=== PATIENT | male | born 1955 | race Caucasian/White ===

== ENCOUNTER 2016-03-02 09:05 | Day surgery (SDC) | payer BC ==
[~2016-03-02 09:05] MED LIST: BUPIVACAINE HCL 0.75% INJ/PF (7.5 MG/1 ML) 10 ML SDV OS PRN; KETOROLAC TROMETHAMINE 0.45% 4 DROP/0.4 ML DROPERETTE OS PRN; LIDOCAINE 4% INJ/PF (40 MG/ML) 5 ML AMPUL OS PRN
[2016-03-02] MEDS ORDERED: PHENYLEPHRINE/KETOROLAC 1%-0.3% 4 ML VIAL ONE (09:11)
[2016-03-02] MEDS: TETRACAINE HCL 0.5% OPH SOLN 0.6 ML DROPERETTE OS PRN ×2 (09:20→09:50)
[2016-03-02] MEDS: CYCLOPENTOLATE 0.2%/PHENYLEPHRINE 1% OPH SOLN 2 ML OS PRN ×3 (09:21→09:48)
[2016-03-02] MEDS: TROPICAMIDE 1% OPH SOLN 3 ML OS PRN ×3 (09:22→09:49)
[2016-03-02] MEDS: BESIFLOXACIN HCL 0.6% OPH SUSP 5 ML BOTTLE OS PRN ×4 (09:23→10:48)
[2016-03-02] MEDS ORDERED: MIDAZOLAM 2 MG/2 ML INJ ONE (09:54)
[2016-03-02] MEDS ORDERED: ONDANSETRON HCL INJ/PF 4 MG/2 ML SDV ONE (09:55)
[2016-03-02] MEDS ORDERED: FENTANYL CITRATE INJ/PF 100 MCG/2 ML AMPUL ONE (09:55)
[2016-03-02] MEDS ORDERED: LIDOCAINE 1% INJ-PF (10 MG/ML) 30 ML SDV ONE (10:18)
[2016-03-02] MEDS: CHONDR SU A NA/HYALUR INTRAOC KIT (SURGICARE) ONE ×2 (10:40)
--- NOTE | 2016-03-02 11:18 | [facility] DISCHARGE SUMMARY E ---
[facility] Discharge Summary NAME: HUY FLEMING AGE: 60Y ADMITTED: 03/02/2016 DISCHARGED: PREOPERATIVE DIAGNOSES: 1. Cataract, left eye. 2. Pupil miosis, left eye. POSTOPERATIVE DIAGNOSES: 1. Cataract, left eye. 2. Pupil miosis, left eye. HOSPITAL COURSE: The patient is a 65-year-old gentleman who underwent uneventful complex cataract extraction with intraocular lens implant, left eye, on 03/02/2016. He will be discharged to home. He was instructed to resume preoperative medications, take Tylenol as needed for discomfort, to keep his eye shielded, to use Besivance, Durezol, and Ilevro at 3 p.m. and 8 p.m., and to follow up in my office in 1 day. DICTATING PHYSICIAN: TENA MALIN M.D. [id number] PHY#: [id number] ID: [id number] JOB#: [id number] ACCT: [id number] cc:TENA MALIN M.D. >
--- NOTE | 2016-03-02 11:18 | [facility] OPERATIVE REPORT E ---
[facility] Operative Report NAME: HUY FLEMING AGE: 60Y DATE OF SURGERY: 03/02/2016 ROOM: PREOPERATIVE DIAGNOSES: 1. Cataract, left eye. 2. Pupil miosis, left eye. POSTOPERATIVE DIAGNOSES: 1. Cataract, left eye. 2. Pupil miosis, left eye. PROCEDURE PERFORMED: Complex cataract extraction with intraocular lens implant, left eye. SURGEON: Myrna Malin MD ANESTHESIA: Topical with MAC plus intraocular lidocaine. INDICATIONS FOR SURGERY: Difficulty with glare with driving. Best corrected visual acuity 20/70. INDICATIONS FOR COMPLEX: poor pupil dilation requiring use of iris expansion device PROCEDURE IN DETAIL: The patient was brought to the operating room and placed on the operating table. Topical anesthesia was administered. This consisted of instrument wipe pledgets soaked in a solution of 4% Xylocaine mixed with 0.75% Marcaine in a 1:2 ratio. A 2 x 1 cm pledget was placed in the superior fornix. A 1 x 1 cm pledget was placed in the inferior fornix. The eye was patched shut for 5 minutes. The patch and pledgets were removed. The eye was sterilely prepped and draped in the usual manner. A lid speculum was placed in the eye. A 4-0 black silk suture was placed around the superior and inferior rectus muscles to use as traction. A conjunctival peritomy was made at the 10 o'clock position. Hemostasis was attained with bipolar cautery. A posterior limbal groove was created using a crescent knife and dissected anteriorly towards the cornea. A sharp point blade was used to create a paracentesis site at the 2 o'clock position. A 2.4 mm keratome was used to enter the anterior chamber through the groove. Then 0.5 mL of 1% nonpreserved lidocaine was injected into the anterior chamber. Viscoelastic was injected into the anterior chamber. Pupil dilation was approximately 4.5 mm. A Malyugin Ring was placed stabilizing the iris. An anterior capsulotomy was performed using Utrata forceps in a capsulorrhexis fashion. Hydrodissection and hydrodelineation were performed. Phacoemulsification was performed in a [id number]-[id number] technique. A total of 46 seconds total phaco time was used. Following this, the I/A unit was used to remove residual cortex. Viscoelastic was injected into the capsular bag. Intraocular lens model [id number]; 20.5 diopters, serial number [id number] was placed in the capsular bag. The Malyugin ring haptics were removed and the ring was removed from the eye. The I/A unit was used to remove residual viscoelastic. The wound was seen to be watertight under high and low pressure and no sutures were placed. The 4-0 black silk sutures and lid speculum were removed. The eye was shielded after Besivance drops were placed. The patient tolerated the procedure well and was sent to the recovery room in good condition. DICTATING PHYSICIAN: MYRNA MALIN M.D. DICTATING PHYSICIAN: MYRNA MALIN M.D. [id number] PHY#: [id number] ID: [id number] JOB#: [id number] ACCT: [id number] cc:MYRNA MALIN M.D. > MTDD
== END 2016-03-02 11:25 | disposition home or self-care (01) ==
LOC: SC 09:05
PROVIDERS: ATTEND Ophthalmology
PROC: 08RK3JZ Replacement of Left Lens with Synthetic Substitute, Percutaneous Approach (ICD-10-PCS; principal; 2016-03-02 10:30)
DX: H25.812 Combined forms of age-related cataract, left eye (principal); H57.03 Miosis; Z96.1 Presence of intraocular lens; I49.9 Cardiac arrhythmia, unspecified
CPT/HCPCS: 66982; V2632; J2250; J3490 ×4; J3010; J2405; C9447; 142

== ENCOUNTER → 2017-06-29 | Outpatient (CLI) | payer BC ==
--- NOTE | 2017-06-29 19:02 | XCELERA REPORT ---
[address] [address] Transthoracic Echocardiogram Report Name: HUY FLEMING Age: 61 yrs Gender: Male : 1955 Patient Status: Outpatient Patient Location: Study Date: 06/29/2017 10:24 AM Height: 70 in Weight: 232 lb BSA: 2.2 m2 Procedure: A complete two-dimensional transthoracic echocardiogram was performed (2D, M-mode, spectral and color flow Doppler). The study was technically difficult with many images being suboptimal in quality. Reason For Study: MURMUR Ordering Physician: AMITA MARIANO PA-C Performed By: Fareed Rodriguez Interpretation Summary The left ventricular ejection fraction is normal. There is mild to moderate concentric left ventricular hypertrophy. The left ventricle is grossly normal size. Doppler measurements suggest pseudonormalized left ventricular relaxation, which is associated with grade II/IV or mild to moderate diastolic dysfunction Wall motion cannot be accurately commented on, but no definite regional wall motion abnormalities noted. The right ventricular systolic function is normal. Borderline left atrial enlargement. The right atrium is normal in size There is a trace amount of mitral regurgitation There is no mitral valve stenosis. There is moderate aortic stenosis There is a peak gradient of 40-45, mean 25 mm of Hg. No aortic regurgitation is present. There is a trace to mild amount of tricuspid regurgitation There is mild pulmonary hypertension by echo Right ventricular systolic pressure is estimated to be elevated at 30- 40mmHg. The aortic root is not well visualized. The inferior vena cava was not well visualized There is no pericardial effusion. MMode/2D Measurements & Calculations RVDd: 3.3 cm LVIDd: 4.9 cmFS: 25.1 % Ao root diam: 3.2 cm IVSd: 1.3 cm LVIDs: 3.6 cmEDV(Teich): 111.4 ml LVPWd: 1.3 cmESV(Teich): 56.2 ml Ao root area: 7.8 cm2 EF(Teich): 49.6 % LA dimension: 3.2 cm LVOT diam: 2.1 cm LVOT area: 3.6 cm2 Doppler Measurements & Calculations MV E max radha: MV P1/2t max radha: Ao V2 max: LV V1 max P.9 cm/sec 83.1 cm/sec 317.9 cm/sec 2.3 mmHg MV A max radha: MV P1/2t: 69.7 msec Ao max PG: LV V1 mean P.5 cm/sec MVA(P1/2t): 3.2 cm2 40.4 mmHg 1.1 mmHg MV E/A: 0.84 MV dec slope: Ao V2 mean: LV V1 max: 348.9 cm/sec2 230.1 cm/sec 75.1 cm/sec MV dec time: 0.20 sec Ao mean PG: LV V1 mean: 24.3 mmHg 47.4 cm/sec Ao V2 VTI: 81.8 cmLV V1 VTI: BRO(I,D): 0.95 cm221.7 cm BRO(V,D): 0.85 cm2 SV(LVOT): 78.0 ml PA V2 max: TR max radha: 69.0 cm/sec 283.5 cm/sec PA max P.9 mmHg TR max P.2 mmHg Left Ventricle The left ventricle is grossly normal size. There is mild to moderate concentric left ventricular hypertrophy. The left ventricular ejection fraction is normal. Doppler measurements suggest pseudonormalized left ventricular relaxation, which is associated with grade II/IV or mild to moderate diastolic dysfunction. Wall motion cannot be accurately commented on, but no definite regional wall motion abnormalities noted. Right Ventricle The right ventricle is grossly normal size. There is normal right ventricular wall thickness. The right ventricular systolic function is normal. Atria The right atrium is normal in size. Borderline left atrial enlargement. Interarterial septum not well visualized and not well dopplered. Cannot comment on ASD/PFO presence. Mitral Valve There is moderate mitral annular calcification. There is no mitral valve stenosis. There is a trace amount of mitral regurgitation. Aortic Valve The aortic valve is moderately calcified. There is moderate aortic stenosis. There is a peak gradient of 40-45, mean 25 mm of Hg. No aortic regurgitation is present. Tricuspid Valve The tricuspid valve is not well visualized secondary to technical limitations. There is no tricuspid stenosis. There is a trace to mild amount of tricuspid regurgitation. There is mild pulmonary hypertension by echo. Right ventricular systolic pressure is estimated to be elevated at 30-40mmHg. Pulmonic Valve The pulmonic valve is not well visualized. Great Vessels The aortic root is not well visualized. The inferior vena cava was not well visualized. Effusions There is no pericardial effusion. : AMITA MARIANO PA-C > Wojciech Guzman
== END ==
LOC: SP 09:20
PROVIDERS: ATTEND Physician Assistant
DX: R01.1 Cardiac murmur, unspecified (principal)
CPT/HCPCS: 93306

== ENCOUNTER 2018-04-16 03:31 | Emergency (ER) | payer BC ==
[2018-04-16] MEDS ORDERED: NORMAL SALINE 1000 ML 1,000 ML IV ONE (04:04)
[2018-04-16 04:05] LABS: ABSOLUTE BASOPHILS # (AUTO) 0.2 10^3/uL (0.0-0.2); ABSOLUTE LYMPHOCYTES (AUTO) 0.6 10^3/uL (0.5-4.7); ABSOLUTE MONOCYTES (AUTO) 0.7 10^3/uL (0.1-1.4); ABSOLUTE NEUT (AUTO) 10.1 10^3/uL (1.7-8.2); BASOPHILS % (AUTO) 1.7 % (0-2); EOSINOPHILS % (AUTO) 0.2 % (0-6); HEMATOCRIT 42.6 % (37.9-51.0); HEMOGLOBIN 14.8 g/dL (13.5-17.0); LYMPHOCYTES % (AUTO) 5.1 % (13-45); MEAN CORPUSCULAR HEMOGLOBIN 32.7 pg (27.0-33.4); MEAN CORPUSCULAR HGB CONC 34.8 g/dL (32.0-36.0); MEAN CORPUSCULAR VOLUME 94 fl (80-97); PLATELET COUNT 242 10^3/uL (150-450); RED BLOOD COUNT 4.54 10^6/uL (4.35-5.55); RED CELL DISTRIBUTION WIDTH 13.6 % (11.5-14.0); TOTAL CELLS COUNTED % (AUTO) 100 %; WHITE BLOOD COUNT 11.6 10^3/uL (4.0-10.5)
[2018-04-16 04:24] LABS: ALANINE AMINOTRANSFERASE 16 U/L (21-72); ALBUMIN 4.5 g/dL (3.5-5.0); ALKALINE PHOSPHATASE 68 U/L (38-126); ANION GAP 11 (5-19); ASPARTATE AMINO TRANSFERASE 25 U/L (17-59); BILIRUBIN,DIRECT 0.3 mg/dL (0.0-0.4); BILIRUBIN,TOTAL 0.6 mg/dL (0.2-1.3); BLOOD UREA NITROGEN 15 mg/dL (7-20); CALCIUM 9.4 mg/dL (8.4-10.2); CARBON DIOXIDE 25 mmol/L (22-30); CHLORIDE 102 mmol/L (98-107); CREATINE KINASE 97 U/L (55-170); GLUCOSE 156 mg/dL (75-110); POTASSIUM 4.2 mmol/L (3.6-5.0); SODIUM 138.4 mmol/L (137-145); TOTAL PROTEIN 7.6 g/dL (6.3-8.2)
--- NOTE | 2018-04-16 04:27 | RADIOLOGY REPORT (SQ) ---
CLINICAL HISTORY: New onset seizures COMPARISON: None. TECHNIQUE: CT HEAD WITHOUT IV CONTRAST on 04/16/2018 3:50 AM [facility] This exam was performed according to our departmental dose-optimization program, which includes automated exposure control, adjustment of the mA and/or kV according to patient size and/or use of iterative reconstruction technique. FINDINGS: There is no acute hemorrhage, mass effect or midline shift. Reid-white differentiation is preserved. There is no hydrocephalus. There is no significant volume loss for age. There are mild patchy hypodensities within the periventricular and subcortical white matter, consistent with microangiopathic ischemic changes. The calvarium is intact. Orbits and globes are unremarkable. The paranasal sinuses are clear. Mastoid air cells are clear. IMPRESSION: No acute intracranial findings.
[2018-04-16 05:00] LABS: APPEARANCE,URINE CLEAR; BILIRUBIN,URINE NEGATIVE (NEGATIVE); COLOR,URINE YELLOW; GLUCOSE, URINE NEGATIVE (NEGATIVE); KETONES,URINE NEGATIVE (NEGATIVE); LEUKOCYTE ESTERASE,URINE NEGATIVE (NEGATIVE); NITRITE,URINE NEGATIVE (NEGATIVE); PROTEIN,URINE NEGATIVE (NEGATIVE); URINE SPECIFIC GRAVITY 1.016; UROBILINOGEN,URINE NEGATIVE mg/dL (<2.0)
[2018-04-16 06:10] LABS: URINE AMPHETAMINES SCREEN NEGATIVE; URINE BARBITURATES SCREEN NEGATIVE; URINE BENZODIAZEPINES SCREEN NEGATIVE; URINE COCAINE SCREEN NEGATIVE; URINE MARIJUANA (THC) SCREEN NEGATIVE; URINE METHADONE SCREEN NEGATIVE; URINE PHENCYCLIDINE SCREEN NEGATIVE
--- NOTE | 2018-04-16 06:32 | ER Document Report ---
Entered by TAVO JC SCRIBE 04/16/18 0336 Acting as scribe for:PANFILO DE LEON MD ED Fall - General Stated Complaint: FALL Time Seen by Provider: 04/16/18 03:34 Primary Care Provider: AMITA MARIANO PA-C [Primary Care Provider] - Follow up as needed Mode of Arrival: Medic Information source: Patient, Emergency Med Personnel Notes: 62 year old male that presents to the emergency department today with complaints of a possible seizure that occurred just prior to arrival. Patient states he remembers going to bed at around 2230 and the next thing he remembers is waking up to "everyone looking at him". Girlfriend reported to EMS that she was awoken by the patient shaking. Girlfriend reports the patient fell out of the bed onto the floor during this shaking episode. Patient denies a history of seizures. Patient states that he drinks x5-6 beers a day and consumed about that much this evening as well. EMS reports that the patient was altered initially. TRAVEL OUTSIDE OF THE [place] IN LAST 30 DAYS: No - Related data Allergies/Adverse Reactions: No Known Allergies Allergy (Verified 02/03/16 11:18) Past Medical History - General Information source: Patient, COUNT INCLUDES THE [facility] Records - Social History Smoking Status: Never Smoker Cigarette use (# per day): No Frequency of alcohol use: Heavy - 5-6 beers a day Drug Abuse: None Occupation: workers compensation claims adjuster Lives with: Family Family History: Reviewed & Not Pertinent - Past Medical History Cardiac Medical History: Reports: Hx Hypertension, Other - Aaortic stenosis Endocrine Medical History: Reports: Hx Hypothyroidism Past Surgical History: Reports: Hx Cholecystectomy, Other - Bilateral cataract surgery - Immunizations Hx Diphtheria, Pertussis, Tetanus Vaccination: Yes Hx Pneumococcal Vaccination: 11/14/14 Review of Systems - Review of Systems Constitutional: No symptoms reported EENT: No symptoms reported Cardiovascular: No symptoms reported Respiratory: No symptoms reported Gastrointestinal: No symptoms reported Genitourinary: No symptoms reported Male Genitourinary: No symptoms reported Musculoskeletal: No symptoms reported Skin: No symptoms reported Hematologic/Lymphatic: No symptoms reported Neurological/Psychological: See HPI, Seizure - ? -: Yes All other systems reviewed and negative Physical Exam - Vital signs Vitals: Temp Pulse Ox 97.9 F 96 04/16/18 03:35 04/16/18 03:35 - Notes Notes: Physical Exam: General: Alert, appears well. HEENT: Normocephalic.PERRL. Extraocular movements intact. There is some subconjunctival hemorrhage in the medial aspect of the right eye, and some redness in the inferior medial orbital region. There is a 1cm transverse very superficial laceration of the right ear lobe with associated swelling and bruising. It does not seem to extend up into the cartilaginous part of the outer ear. The tongue has bruising and abrasion to the right side. Neck: Supple. Non-tender. Respiratory: No respiratory distress. Clear and equal breath sounds bilaterally. Cardiovascular: Regular rate and rhythm. Early systolic murmur best heard at the apex, consistent with the history of aortic stenosis. Abdominal: Normal Inspection. Non-tender. No distension. Normal Bowel Sounds. Back: Non-tender. No deformity or step off. Extremities: Moves all four extremities. Upper extremities: Normal inspection. Normal ROM. Lower extremities: Normal inspection. No edema. Normal ROM. Neurological: Normal cognition. AAOx4. Normal speech. Psychological: Normal affect. Normal Mood. Skin: Warm. Dry. Normal color. Course - Vital Signs Vital signs: Temp Pulse Resp BP Pulse Ox 97.9 F 16 140/96 H 97 04/16/18 03:35 04/16/18 04:41 04/16/18 04:41 04/16/18 04:41 - Laboratory Result Diagrams: 04/16/18 03:55 04/16/18 03:55 Laboratory results interpreted by me: 04/16/18 04/16/18 03:55 03:55 WBC 11.6 H Seg Neutrophils % 87.0 H Lymphocytes % 5.1 L Absolute Neutrophils 10.1 H Glucose 156 H ALT 16 L - Diagnostic Test Radiology reviewed: Image reviewed, Reports reviewed - CT scan of the head is unremarkable. - EKG Interpretation by Me EKG shows normal: Sinus rhythm, [place], Intervals, QRS Complexes, ST-T Waves Rate: Normal - 86 Rhythm: NSR [place]/QRS: Left axis deviation P Waves: LAE When compared to previous EKG there are: Previous EKG unavailable Discharge - Discharge Clinical Impression: Seizure Tear of left earlobe Qualifiers: Encounter type: initial encounter Qualified Code(s): S01.312A - Laceration without foreign body of left ear, initial encounter Contusion of ear Qualifiers: Encounter type: initial encounter Laterality: right Qualified Code(s): S00.431A - Contusion of right ear, initial encounter Condition: Stable Disposition: HOME, SELF-CARE Additional Instructions: Seizure: You have had a seizure. Seizure disorders (epilepsy) of one sort or another affect about one out of 50 people. The seizure occurs because of abnormal electrical activity in the brain. Seizures may be due to drugs and alcohol, strokes, brain injury, or infection. In the most common form of epilepsy, no cause can be found. You will require further evaluation to determine the cause of your seizure, and to determine whether anti-seizure medication is required. This follow-up testing is important, so please call us if you encounter problems with scheduling of tests or appointments. YOU SHOULD NOT DRIVE until released to do so by your physician. The law requires that seizures be reported to the charter bus driver's license bureau--a seizure while driving could be catastrophic. Call the doctor if seizures recur, or if you develop new symptoms such as fever, severe headache, stiff neck, confusion or increasing sleepiness, weakness or numbness, or visual problems. Follow-up with your primary care provider Tuesday morning for further evaluation of your seizure and referral to neurology if needed. You will also need your right external ear injury reevaluated to see if you will need to see an ear, nose and throat doctor. Use bacitracin or Neosporin on your earlobe laceration. Use cold packs to your right ear for the next 24 hours to help reduce swelling. Do not drive, climb ladders, or operate machinery until you are cleared by your doctor or neurologist. RETURN TO THE EMERGENCY ROOM IF ANY NEW OR WORSENING SYMPTOMS. Referrals: AMITA MARIANO PA-C [Primary Care Provider] - Follow up tomorrow Scribe Attestation: 04/16/18 04:09 I personally performed the services described in the documentation, reviewed and edited the documentation which was dictated to the scribe in my presence, and it accurately records my words and actions. I personally performed the services described in the documentation, reviewed and edited the documentation which was dictated to the scribe in my presence, and it accurately records my words and actions.
[2018-04-16 06:57] VITALS: BP 144/99
--- NOTE | 2018-04-16 22:56 | EKG REPORT ---
SEVERITY:- BORDERLINE ECG - SINUS RHYTHM PROBABLE LEFT ATRIAL ABNORMALITY LEFT AXIS DEVIATION : Confirmed by: Wojciech Guzman 16-Apr-2018 22:55:20
== END 2018-04-16 06:57 | disposition home or self-care (01) ==
LOC: ER 03:31
DX: R56.9 Unspecified convulsions (principal); S01.312A Laceration without foreign body of left ear, initial encounter; W06.XXXA Fall from bed, initial encounter; H11.31 Conjunctival hemorrhage, right eye; I10 Essential (primary) hypertension
CPT/HCPCS: 93005; 99284; 96360; 36415; 82550; 85025; 80053; 81001; 80307; 70450; 93010; J7030